=== PATIENT | female | born 1990 | race Caucasian/White ===

== ENCOUNTER → 2025-06-11 | Outpatient (REF) | payer BC ==
[2025-06-11 17:32] LABS: AMORPHOUS SEDIMENT SMALL (NEGATIVE); APPEARANCE, URINE HAZY (CLEAR); BACTERIA, URINE AUTO NEGATIVE (NEGATIVE); BILIRUBIN, URINE AUTO NEGATIVE (NEGATIVE); BLOOD, URINE BLOOD NEGATIVE (NEGATIVE); GLUCOSE, URINE (UA) AUTO NEGATIVE (NEGATIVE); KETONE, URINE AUTO NEGATIVE (NEGATIVE); LEUKOCYTE ESTERASE, URINE AUTO NEGATIVE (NEGATIVE); MUCUS, URINE SMALL (NEGATIVE); NITRITE, URINE AUTO NEGATIVE (NEGATIVE); PROTEIN, URINE AUTO NEGATIVE (NEGATIVE); RBC, URINE AUTO 1 /HPF (0-3); SPECIFIC GRAVITY URINE AUTO 1.024 (1.002-1.035); SQUAMOUS EPITHELIAL CELL UR AU 4 /HPF (0-6); UROBILINOGEN, URINE AUTO 0.2 mg/dL (0.0-2.0); WBC, URINE AUTO 1 /HPF (0-3)
[2025-06-11 18:23] LABS: ALT/SGPT 17.0 U/L (7.0-40); AST/SGOT 20.0 U/L (<34); CALCIUM LEVEL 9.0 MG/DL (8.5-10.1); CARBON DIOXIDE LEVEL 29.0 MMOL/L (20-31); CHLORIDE LEVEL 104.0 MMOL/L (98-107); CHOLESTEROL LEVEL 182.0 MG/DL (<200); CHOLESTEROL RISK RATIO 3.88 (<5); CREATININE FOR GFR 0.92 MG/DL (0.55-1.30); GLOMERULAR FILTRATION RATE 83.3 (>60); LDL CHOLESTEROL 114.6 MG/DL (<100); NON-HDL-C 135.2 MG/DL; POTASSIUM SERUM 4.3 MMOL/L (3.5-5.1); SODIUM LEVEL 142.0 MMOL/L (136-145); TRIGLYCERIDES LEVEL 103.0 MG/DL (<150)
[2025-06-11 18:24] LABS: BASO # 0.1 10^3/uL (0.0-0.2); BASO % 0.9 % (0.0-1.0); EOS # 0.2 10^3/uL (0.0-0.5); EOS % 4.2 % (0.0-3.0); LYMPH # 1.3 10^3/uL (1.5-5.0); LYMPH % 24.1 % (24.0-44.0); MONO # 0.4 10^3/uL (0.0-0.8); MONO % 8.0 % (2.0-8.0); NEUTROPHILS # 3.3 10^3/uL (1.5-8.5); NEUTROPHILS % 62.6 % (36.0-66.0); PLATELET COUNT, AUTOMATED 275 10^3/uL (150-450)
[2025-06-11 18:54] LABS: ESTIMATED AVERAGE GLUCOSE 91.0 MG/DL (60-110)
== END ==
LOC: M SFHCLERA 10:13
PROVIDERS: ATTEND Internal Medicine
DX: I10 Essential (primary) hypertension (principal)

== ENCOUNTER 2025-08-13 05:16 | Emergency (ER) | payer BC ==
[~2025-08-13] VITALS: Ht 177.8 cm; Wt 106.3 kg
[2025-08-13] MEDS ORDERED: OXYC-517 PO (05:24)
[2025-08-13] MEDS ORDERED: AMLO1TAB25 PO (05:28)
[2025-08-13 06:12] LABS: URINE PREG TEST NEGATIVE (NEGATIVE)
[2025-08-13] MEDS ORDERED: GI COCKTAIL 50 ML BTL(HYOSCYAMINE/MAALOX/LIDOCAINE VISCOUS)(1:3:1) PO ONE (06:15)
[2025-08-13 06:21] LABS: BASO # 0.1 10^3/uL (0.0-0.2); BASO % 0.6 % (0.0-1.0); EOS # 0.2 10^3/uL (0.0-0.5); EOS % 1.2 % (0.0-3.0); LYMPH # 2.3 10^3/uL (1.5-5.0); LYMPH % 15.7 % (24.0-44.0); MONO # 0.7 10^3/uL (0.0-0.8); MONO % 4.7 % (2.0-8.0); NEUTROPHILS # 11.3 10^3/uL (1.5-8.5); NEUTROPHILS % 77.3 % (36.0-66.0); PLATELET COUNT, AUTOMATED 364 10^3/uL (150-450)
[2025-08-13 06:23] LABS: KETONE, URINE AUTO RFX NEGATIVE (NEGATIVE); LEUKOCYTE ESTERASE UR AUTO RFX NEGATIVE (NEGATIVE); MUCUS, URINE RFX SMALL (NEGATIVE); NITRITE, URINE AUTO RFX NEGATIVE (NEGATIVE); RBC, URINE AUTO RFX 0 /HPF (0-3); SQUAM EPITHELIAL CELL UR AURFX 2 /HPF (0-6); WBC, URINE AUTO RFX 2 /HPF (0-3)
[2025-08-13] MEDS: PANTOPRAZOLE 40MG VIAL IV ONE (06:38)
[2025-08-13] MEDS: ONDANSETRON 4MG/2ML VIAL IV ONE (06:38)
[2025-08-13 06:39] LABS: ALT/SGPT 24 U/L (7.0-40); AST/SGOT 25 U/L (<34); CALCIUM LEVEL 9.5 MG/DL (8.5-10.1); CARBON DIOXIDE LEVEL 27 MMOL/L (20-31); CHLORIDE LEVEL 100 MMOL/L (98-107); CK-MB VALUE MASS 1.3 NG/ML (<3.6); CPK CREATINE PHOSPHOKINASE 108 U/L (34-145); CREATININE FOR GFR 0.87 MG/DL (0.55-1.30); GLOMERULAR FILTRATION RATE 89.1 (>60); MB/CK RELATIVE INDEX 1.20 (< OR =4); POTASSIUM SERUM 3.9 MMOL/L (3.5-5.1); SODIUM LEVEL 139 MMOL/L (136-145)
[2025-08-13] MEDS: KETOROLAC 30 MG/ML 1 ML VIAL IV ONE (06:39)
[2025-08-13] MEDS: NS (Normal Saline) 0.9% 1,000 ML IV ONE (06:39)
[2025-08-13 06:45] LABS: HCG, SERUM QUALITATIVE NEGATIVE (NEGATIVE)
[2025-08-13 06:48] LABS: D-DIMER QUANT 0.79 ug/mL (<0.5); INR 0.98
[2025-08-13] MEDS ORDERED: ISOVUE-370 76% 100 ML VIAL As Ordered ONE (07:17)
[2025-08-13] MEDS: amLODIPine 10 MG TAB PO ONE (08:40)
[2025-08-13] MEDS: ACETAMINOPHEN *IV* 1,000 MG in IV 1 EA IV ONE (09:49)
[2025-08-13 09:50] VITALS: BP 196/98
[2025-08-13 11:01] VITALS: BP 133/73; O2SAT 99
[2025-08-13] MEDS ORDERED: CARA1TAB6 PO (11:01)
[2025-08-13] MEDS ORDERED: OMEP40CA4 PO (11:01)
[2025-08-13] MEDS ORDERED: ONDA-282 PO (11:01)
[2025-08-13 11:04] VITALS: TEMP 97.1
== END 2025-08-13 11:10 | disposition home or self-care (01) ==
LOC: M ED 05:16
DX: R10.13 Epigastric pain (principal); R11.2 Nausea with vomiting, unspecified; K82.8 Other specified diseases of gallbladder; K80.20 Calculus of gallbladder without cholecystitis without obstruction; I10 Essential (primary) hypertension; I45.81 Long QT syndrome; Z88.5 Allergy status to narcotic agent; Z79.899 Other long term (current) drug therapy
CPT/HCPCS: 71275; 74177; 76705; 80048; 80076; 81001; 82550; 82553; 83690; 84484; 84703; 85025; 85379; 85610; 85730; 93005; 93041; 96361; 96365; 96375; 99285; J0134; J1885; J2405; J2470; J2765; Q9967